=== PATIENT | female | born 1990 ===

== ENCOUNTER 2017-06-29 12:18 | Emergency (ER) | payer MEDICAID ==
[2017-06-29 12:38] VITALS: RESP 18; BMI 32.8
[2017-06-29] MEDS ORDERED: Sodium Chloride 0.9% 1,000 ML IV STA (13:00)
[2017-06-29 13:15] LABS: BASO # 0.02 K/mm3 (0.0-2.0); BASO % 0.2 % (0.0-3.0); EOS # 0.4 (0.0-0.7); EOS % 4.7 % (1.5-5.0); GRAN # 4.28 (1.4-6.5); GRAN % 52.1 % (50.0-68.0); LYMPH # 3.1 (1.2-3.4); MEAN CELL VOLUME 92.2 fl (80.0-105.0); MEAN CORPUSCULAR HEMOGLOBIN 32.1 pg (25.0-35.0); MEAN CORPUSCULAR HGB CONC 34.8 g/dl (31.0-37.0); MEAN PLATELET VOLUME 10.5 fl (7.0-11.0); MONO # 0.4 (0.1-0.6); RED CELL DISTRIBUTION WIDTH 12.6 % (11.5-14.5); WHITE BLOOD COUNT 8.2 10^3/ul (4.5-11.0)
[2017-06-29 13:16] LABS: URINE BILIRUBIN NEGATIVE (NEGATIVE); URINE BLOOD SMALL (NEGATIVE); URINE GLUCOSE (UA) NEGATIVE (NEGATIVE); URINE KETONE NEGATIVE (NEGATIVE); URINE LEUKOCYTE ESTERASE NEGATIVE Leu/uL (NEGATIVE); URINE PROTEIN NEGATIVE mg/dL (<30 mg/dL); URINE UROBILINOGEN 0.2 E.U./dL (<1 E.U./dL)
[2017-06-29 13:20] LABS: URINE APPEARANCE CLEAR (CLEAR); URINE COLOR YELLOW (YELLOW)
[2017-06-29 13:32] LABS: INR 1.01 (0.93-1.08); PARTIAL THROMBOPLASTIN TIME 30.3 Seconds (25.1-36.5)
[2017-06-29 13:36] LABS: URINE BACTERIA SMALL (NEG); URINE EPITHELIAL CELLS 0 - 2 /hpf (0-5); URINE RBC 0 - 2 /hpf (0-2); URINE WBC 0 - 2 /hpf (0-6)
[2017-06-29 13:37] LABS: ALB/GLOB RATIO 1.4 (1.1-1.8); ALKALINE PHOSPHATASE 86 U/L (38-126); ALT/SGPT 34 U/L (7-56); AST/SGOT 27 U/L (14-36); BLOOD UREA NITROGEN 15 mg/dL (7-21); CALCIUM 9.7 mg/dL (8.4-10.5); CARBON DIOXIDE 26 mmol/L (21-33); CHLORIDE 103 mmol/L (98-107); GFR AFRICAN-AMERICAN > 60; GLUCOSE,RANDOM 108 mg/dL (70-110); LIPASE 58 U/L (23-300); SODIUM 141 mmol/L (132-148)
--- NOTE | 2017-06-29 14:15 | ED PDOC ---
Arrival/HPI - General Chief Complaint: Abdominal Pain Time Seen by Provider: 06/29/17 12:59 Historian: Patient - History of Present Illness Narrative History of Present Illness (Text): 06/29/17 14:12 26yo female with no PMHx who present with complaint of diffuse crampy abdominal pain, nausea, nonbloody vomiting since last night. Notes only one episode of vomiting since last night.states she recently came from [place] a week ago. She denies fever, urinary symptoms, diarrhea, constipation, chest pain, sick contact, travel, any other complaint. Past Medical History - Provider Review Nursing Documentation Reviewed: Yes - Psychiatric Hx Substance Use: No - Surgical History Hx Section: Yes - Anesthesia Hx Anesthesia: Yes Hx Anesthesia Reactions: No Hx Malignant Hyperthermia: No Family/Social History - Physician Review Nursing Documentation Reviewed: Yes Family/Social History: Unknown Family HX Smoking Status: Never Smoked Hx Alcohol Use: No Hx Substance Use: No Allergies/Home Meds Allergies/Adverse Reactions: Allergies No Known Allergies Allergy (Verified 06/29/17 12:32) Review of Systems - Physician Review All systems were reviewed & negative as marked: Yes - Review of Systems Constitutional: Normal Eyes: Normal ENT: Normal Respiratory: Normal Cardiovascular: Normal Gastrointestinal: Abdominal Pain, Nausea, Vomiting. absent: Constipation, Diarrhea, Hematemesis Genitourinary Female: Normal Musculoskeletal: Normal Skin: Normal Neurological: Normal Endocrine: Normal Hemo/Lymphatic: Normal Psychiatric: Normal Physical Exam Vital Signs Reviewed: Yes Vital Signs Temp Pulse Resp BP Pulse Ox 06/29/17 12:32 98.5 F 83 18 111/70 99 Temperature: Afebrile Blood Pressure: Normal Pulse: Regular Respiratory Rate: Normal Appearance: Positive for: Well-Appearing, Non-Toxic, Comfortable Pain Distress: None Mental Status: Positive for: Alert and Oriented X 3 - Systems Exam Head: Present: Atraumatic, Normocephalic Pupils: Present: PERRL Extroacular Muscles: Present: EOMI Conjunctiva: Present: Normal Mouth: Present: Moist Mucous Membranes Neck: Present: Normal Range of Motion Respiratory/Chest: Present: Clear to Auscultation, Good Air Exchange. No: Respiratory Distress, Accessory Muscle Use Cardiovascular: Present: Regular Rate and Rhythm, Normal S1, S2. No: Murmurs Abdomen: Present: Tenderness (Mild tenderness with deep palpation), Normal Bowel Sounds, Other (soft). No: Distention, Peritoneal Signs, Rebound, Guarding , McBurney's Point Tender, Rovsing's Sign Present Back: Present: Normal Inspection Upper Extremity: Present: Normal Inspection. No: Cyanosis, Edema Lower Extremity: Present: Normal Inspection. No: Edema Neurological: Present: GCS=15, CN II-XII Intact, Speech Normal Skin: Present: Warm, Dry, Normal Color. No: Rashes Psychiatric: Present: Alert, Oriented x 3, Normal Insight, Normal Concentration Medical Decision Making ED Course and Treatment: 06/29/17 14:17 Pt in ED for stated history. she was hemodynamically stable. Lab was unremarkable. she was able to tolerate PO challenge. Pt symptoms likely viral enteritis. Will DC home with zofran and pepcid. Advised to follow BLAND diet. Referred to the clinic. TRT ED for any new or worsening symptoms. - Lab Interpretations Lab Results: 06/29/17 13:00 06/29/17 13:00 Lab Results 06/29/17 13:00: Sodium 141, Potassium 4.0, Chloride 103, Carbon Dioxide 26, Anion Gap 16, BUN 15, Creatinine 0.8, Est GFR ( Amer) > 60, Est GFR (Non- Af Amer) > 60, Random Glucose 108, Calcium 9.7, Total Bilirubin 1.0, AST 27, ALT 34, Alkaline Phosphatase 86, Total Protein 8.0, Albumin 4.7, Globulin 3.3, Albumin/Globulin Ratio 1.4, Lipase 58 06/29/17 13:00: Urine Color Yellow, Urine Appearance Clear, Urine pH 6.0, Ur Specific [place] 1.025, Urine Protein Negative, Urine Glucose (UA) Negative, Urine Ketones Negative, Urine Blood Small H, Urine Nitrate Negative, Urine Bilirubin Negative, Urine Urobilinogen 0.2, Ur Leukocyte Esterase Negative, Urine RBC 0 - 2, Urine WBC 0 - 2, Ur Epithelial Cells 0 - 2, Urine Bacteria Small 06/29/17 13:00: PT 11.1, INR 1.01, APTT 30.3 06/29/17 13:00: WBC 8.2, RBC 4.99, Hgb 16.0, Hct 46.0, MCV 92.2, MCH 32.1, MCHC 34.8, RDW 12.6, Plt Count 322, MPV 10.5, Gran % 52.1, Lymph % (Auto) 38.0 H, [place] % (Auto) 5.0, Eos % (Auto) 4.7, Baso % (Auto) 0.2, Gran # 4.28, Lymph # 3.1 , [place] # 0.4, Eos # 0.4, Baso # 0.02 - Medication Orders Current Medication Orders: Discontinued Medications Famotidine (Pepcid) 20 mg IVP STAT STA Stop: 06/29/17 13:01 Last Admin: 06/29/17 13:07 Dose: 20 mg IVP Administration Document 06/29/17 13:07 EWO (Rec: 06/29/17 13:07 [facility] [id number]) Charges for Administration # of IVP Administrations 1 Sodium Chloride (Sodium Chloride 0.9%) 1,000 mls @ 1,000 mls/hr IV .Q1H STA Stop: 06/29/17 13:59 Last Admin: 06/29/17 13:07 Dose: 1,000 mls/hr eMAR Start Stop Document 06/29/17 13:07 EWO (Rec: 06/29/17 13:08 [facility] [id number]) Intravenous Solution Start Date 06/29/17 Start Time 13:08 End Date 06/29/17 End time 14:08 Total Infusion Time 60 Ketorolac Tromethamine (Toradol) 30 mg IVP STAT STA Stop: 06/29/17 13:01 Last Admin: 06/29/17 13:08 Dose: 30 mg MAR Pain Assessment Document 06/29/17 13:08 EW (Rec: 06/29/17 13:08 [facility] [id number]) Pain Reassessment Is this a pain reassessment? No Sleep Is patient sleeping during reassessment? No Presence of Pain Presence of Pain Yes Pain Scale Used Pain Scale Used Numeric Location Pain Location Body Site Abdomen Description Description Intermittent Intensity of Pain at present 5 IVP Administration Document 06/29/17 13:08 EWO (Rec: 06/29/17 13:08 [facility] [id number]) Charges for Administration # of IVP Administrations 1 Ondansetron HCl (Zofran Inj) 4 mg IVP STAT STA Stop: 06/29/17 13:01 Last Admin: 06/29/17 13:08 Dose: 4 mg IVP Administration Document 06/29/17 13:08 SHAYYSharon (Rec: 06/29/17 13:08 ANGELICA [id number]) Charges for Administration # of IVP Administrations 1 Disposition/Present on Arrival - Present on Arrival Any Indicators Present on Arrival: No History of DVT/PE: No History of Uncontrolled Diabetes: No Urinary Catheter: No History of Decub. Ulcer: No History Surgical Site Infection Following: None - Disposition Have Diagnosis and Disposition been Completed?: Yes Diagnosis: Abdominal pain, Vomiting Disposition: HOME/ ROUTINE Disposition Time: 14:15 Patient Plan: Discharge Condition: STABLE Discharge Instructions (ExitCare): Acute Abdominal Pain (ED), Acute Nausea and Vomiting (ED) Additional Instructions: Follow up with your PMD/Clinic Return to ED for any new or worsening symptoms Prescriptions: Famotidine [Pepcid] 20 mg PO BID #20 tab Ondansetron ODT [Zofran ODT] 4 mg PO Q6 #7 odt Referrals: Roverto Stevenson, [Primary Care Provider] - Follow up with primary [facility] [place] [Outside] - Follow up with primary
[2017-06-29 14:38] VITALS: BP 124/78; PULSE 72; TEMP 98; O2SAT 98
== END 2017-06-29 14:38 | disposition home or self-care (01) ==
LOC: ED 12:18
DX: R10.9 Unspecified abdominal pain (principal); R11.10 Vomiting, unspecified
CPT/HCPCS: 80053; 81001; 83690; 85025; 85610; 85730; 96361; 96374; 96375; 99284; J1885; J2405; J7040

== ENCOUNTER 2017-10-23 04:41 | Emergency (ER) | payer MEDICAID, OTHER ==
[2017-10-23 04:42] VITALS: BMI 32.8
[2017-10-23 04:49] VITALS: TEMP 97.5
--- NOTE | 2017-10-23 05:01 | ED PDOC ---
Arrival/HPI - General Chief Complaint: Abdominal Pain Time Seen by Provider: 10/23/17 04:57 Historian: Patient - History of Present Illness Narrative History of Present Illness (Text): 10/23/17 05:00 Fatuma Dasilva is a 27 year old female who presents to the Emergency department complaining of RLQ abdominal pain since yesterday afternoon. Patient denies any fever, chills, chest pain, shortness of breath, nausea, vomiting, diarrhea, urinary symptoms, back pain, neck pain, headache, dizziness, or any other complaints. Time/Duration: Other (yesterday) Symptom Onset: Gradual Symptom Course: Unchanged Activities at Onset: Light Context: Home Past Medical History - Provider Review Nursing Documentation Reviewed: Yes - Psychiatric Hx Substance Use: No - Surgical History Hx Section: Yes (x2) - Anesthesia Hx Anesthesia: Yes Hx Anesthesia Reactions: No Hx Malignant Hyperthermia: No Family/Social History - Physician Review Nursing Documentation Reviewed: Yes Family/Social History: Unknown Family HX Smoking Status: Never Smoked Hx Alcohol Use: No Hx Substance Use: No Allergies/Home Meds Allergies/Adverse Reactions: Allergies No Known Allergies Allergy (Verified 10/23/17 04:52) Review of Systems - Physician Review All systems were reviewed & negative as marked: Yes - Review of Systems Constitutional: Normal. absent: Fevers Eyes: Normal ENT: Normal Respiratory: Normal. absent: SOB, Cough Cardiovascular: Normal. absent: Chest Pain Gastrointestinal: Abdominal Pain. absent: Diarrhea, Nausea, Vomiting Genitourinary Female: Normal. absent: Dysuria, Frequency, Hematuria, Urine Output Changes Musculoskeletal: Normal. absent: Back Pain, Neck Pain Skin: Normal. absent: Rash Neurological: Normal. absent: Headache, Dizziness Endocrine: Normal Hemo/Lymphatic: Normal Psychiatric: Normal Physical Exam Vital Signs Reviewed: Yes Vital Signs Temp Pulse Resp BP Pulse Ox 10/23/17 04:47 97.5 F L 81 20 138/71 99 Temperature: Afebrile Blood Pressure: Normal Pulse: Regular Respiratory Rate: Normal Appearance: Positive for: Well-Appearing, Non-Toxic, Comfortable Pain Distress: None Mental Status: Positive for: Alert and Oriented X 3 - Systems Exam Head: Present: Atraumatic, Normocephalic Pupils: Present: PERRL Extroacular Muscles: Present: EOMI Conjunctiva: Present: Normal Mouth: Present: Moist Mucous Membranes Neck: Present: Normal Range of Motion Respiratory/Chest: Present: Clear to Auscultation, Good Air Exchange. No: Respiratory Distress, Accessory Muscle Use Cardiovascular: Present: Regular Rate and Rhythm, Normal S1, S2. No: Murmurs Abdomen: Present: Tenderness (RLQ tenderness). No: Distention, Peritoneal Signs Genitourinary/Pelvic Exam: Present: Normal External Genitalia, Adenexal Tenderness (rt), Cervical os Closed. No: Vaginal Discharge, Vaginal Bleeding, Cervical Motion Tendernes, Odor Back: Present: Normal Inspection Upper Extremity: Present: Normal Inspection. No: Cyanosis, Edema Lower Extremity: Present: Normal Inspection. No: Edema Neurological: Present: GCS=15, CN II-XII Intact, Speech Normal Skin: Present: Warm, Dry, Normal Color. No: Rashes Psychiatric: Present: Alert, Oriented x 3, Normal Insight, Normal Concentration Medical Decision Making ED Course and Treatment: 10/23/17 05:00 Impression: 27 year old female complaining of RLQ abdominal pain since yesterday afternoon. Plan: -- CT Abdomen and Pelvis -- Labs -- UA -- IV fluids -- Toradol -- Reassess and disposition Prior Visits: Notes and results from previous visits were reviewed. On 06/29/17, pt was seen in the Emergency department for diffuse abdominal cramping, nausea, and vomiting. Pt was d/c home. Progress Notes: 10/23/17 06:30 CT Abdomen and Pelvis shows: Lung bases: Unremarkable. No mass. No consolidation. ABDOMEN: Liver: Unremarkable. Gallbladder and bile ducts: Unremarkable. No calcified stones. No ductal dilation. Pancreas: Unremarkable. No ductal dilation. Spleen: Unremarkable. No splenomegaly. Adrenals: Unremarkable. No mass. Kidneys and ureters: Unremarkable. No obstructing stones. No hydronephrosis. Stomach and bowel: Unremarkable. No obstruction. No mucosal thickening. Appendix: No findings to suggest acute appendicitis. Normal appendix. PELVIS: Bladder: Unremarkable. No stones. Reproductive: There is a low density cystic structure in the right pelvis demonstrating a 3.5 cm central oval hyperdensity. Findings could be secondary to hemorrhagic ovarian cyst measuring 4.5 x 5.1 x 4.3 cm. ABDOMEN and PELVIS: Intraperitoneal space: Unremarkable. No free air. No significant fluid collection. Bones/joints: No acute fracture. No dislocation. Soft tissues: Unremarkable. Vasculature: Unremarkable. No abdominal aortic aneurysm. Lymph nodes: Unremarkable. No enlarged lymph nodes. Tubes, lines and devices: An intrauterine device is present. IMPRESSION: Complex right pelvic cystic mass, possible hemorrhagic ovarian cyst. Followup pelvic ultrasound could be performed for further evaluation. No evidence of acute appendicitis. No nephrolithiasis or obstructive uropathy. Transvaginal US ordered. 10/23/17 07:[address] Bravo, pending US, re-evaluation, and disposition. - Lab Interpretations Lab Results: 10/23/17 05:00 10/23/17 05:00 Lab Results 10/23/17 05:00: Sodium 143, Potassium 4.1, Chloride 103, Carbon Dioxide 30, Anion Gap 13, BUN 9, Creatinine 0.7, Est GFR ( Amer) > 60, Est GFR (Non- Af Amer) > 60, Random Glucose 99, Calcium 9.7, Total Bilirubin 0.7, AST 27, ALT 34, Alkaline Phosphatase 84, Total Protein 7.6, Albumin 4.4, Globulin 3.2, Albumin/Globulin Ratio 1.4 10/23/17 05:00: WBC 10.4 D, RBC 4.68, Hgb 15.0, Hct 43.5, MCV 92.9, MCH 32.1, MCHC 34.5, RDW 12.4, Plt Count 312, MPV 10.8, Gran % 51.3, Lymph % (Auto) 38.2 H , [place] % (Auto) 7.2 H, Eos % (Auto) 3.0, Baso % (Auto) 0.3, Gran # 5.36, Lymph # (Auto) 4.0 H, [place] # (Auto) 0.8 H, Eos # (Auto) 0.3, Baso # (Auto) 0.03 I have reviewed the lab results: Yes - RAD Interpretation Radiology Orders: 10/23/17 05:24 ABD & PELVIS W/O PO OR IV CONT [CT] Stat 10/23/17 06:28 TRANSVAGINAL [US] Stat Equipment Tech: Radiologist - Medication Orders Current Medication Orders: Sodium Chloride (Sodium Chloride 0.9%) 1,000 mls @ 80 mls/hr IV .[id number] BRIDGER Last Admin: 10/23/17 05:16 Dose: 80 mls/hr eMAR Start Stop Document 10/23/17 05:16 SS (Rec: 10/23/17 05:16 SS [id number]) Intravenous Solution Start Date 10/23/17 Start Time 05:16 Discontinued Medications Ketorolac Tromethamine (Toradol) 10 mg IVP ONCE ONE Stop: 10/23/17 05:11 Ketorolac Tromethamine (Toradol) 15 mg IVP ONCE ONE Stop: 10/23/17 05:11 Last Admin: 10/23/17 05:22 Dose: 15 mg MAR Pain Assessment Document 10/23/17 05:22 SS (Rec: 10/23/17 05:22 SS [id number]) Pain Reassessment Is this a pain reassessment? No Sleep Is patient sleeping during reassessment? No Presence of Pain Presence of Pain Yes Pain Scale Used Pain Scale Used Numeric Location Left, Right or Bilateral Right Pain Location Body Site Jaw Abdomen Description Description Constant Intensity of Pain at present 9 IVP Administration Document 10/23/17 05:22 SS (Rec: 10/23/17 05:22 SS [id number]) Charges for Administration # of IVP Administrations 1 Morphine Sulfate (Morphine) 2 mg IVP STAT STA Stop: 10/23/17 05:50 Last Admin: 10/23/17 05:54 Dose: - Scribe Statement The provider has reviewed the documentation as recorded by the Dorothy Mott Provider Scribe Attestation: All medical record entries made by the Scribe were at my direction and personally dictated by me. I have reviewed the chart and agree that the record accurately reflects my personal performance of the history, physical exam, medical decision making, and the department course for this patient. I have also personally directed, reviewed, and agree with the discharge instructions and disposition. Disposition/Present on Arrival - Present on Arrival History of DVT/PE: No History of Uncontrolled Diabetes: No Urinary Catheter: No History of Decub. Ulcer: No History Surgical Site Infection Following: None - Disposition Forms: [employer] (Citizen Of [place])
[2017-10-23 05:10] LABS: BASO # 0.03 K/mm3 (0.0-2.0); BASO % 0.3 % (0.0-3.0); EOS # 0.3 (0.0-0.7); GRAN # 5.36 (1.4-6.5); GRAN % 51.3 % (50.0-68.0); LYMPH % 38.2 % (22.0-35.0); MEAN CELL VOLUME 92.9 fl (80.0-105.0); MEAN CORPUSCULAR HEMOGLOBIN 32.1 pg (25.0-35.0); MEAN CORPUSCULAR HGB CONC 34.5 g/dl (31.0-37.0); MEAN PLATELET VOLUME 10.8 fl (7.0-11.0); MONO # 0.8 (0.1-0.6); MONO % 7.2 % (1.0-6.0); RBC 4.68 10^6/uL (3.5-6.1); RED CELL DISTRIBUTION WIDTH 12.4 % (11.5-14.5); WHITE BLOOD COUNT 10.4 10^3/ul (4.5-11.0)
[2017-10-23] MEDS ORDERED: Sodium Chloride 0.9% 1,000 ML IV SCH (05:15)
[2017-10-23 05:27] LABS: ALB/GLOB RATIO 1.4 (1.1-1.8); ALBUMIN 4.4 g/dL (3.0-4.8); ALT/SGPT 34 U/L (7-56); AST/SGOT 27 U/L (14-36); BLOOD UREA NITROGEN 9 mg/dL (7-21); CALCIUM 9.7 mg/dL (8.4-10.5); GFR AFRICAN-AMERICAN > 60; GFR NON-AFRICAN AMERICAN > 60
[2017-10-23] MEDS ORDERED: Morphine 4 mg/ml ISec IVP STA (05:49)
[2017-10-23] MEDS: Morphine 4 mg/ml ISec ONE ×2 (05:55→06:01)
--- NOTE | 2017-10-23 06:25 | CT ---
EXAM: CT Abdomen and Pelvis Without Intravenous Contrast CLINICAL HISTORY: 27 years old, female; Pain; Abdominal pain; Flank; Right lower quadrant (rlq); Additional info: Rlq pain TECHNIQUE: Axial computed tomography images of the abdomen and pelvis without intravenous contrast. All CT scans at this facility use one or more dose reduction techniques, viz.: automated exposure control; ma/kV adjustment per patient size (including targeted exams where dose is matched to indication; i.e. head); or iterative reconstruction technique. Coronal and sagittal reformatted images were created and reviewed. COMPARISON: No relevant prior studies available. FINDINGS: Lung bases: Unremarkable. No mass. No consolidation. ABDOMEN: Liver: Unremarkable. Gallbladder and bile ducts: Unremarkable. No calcified stones. No ductal dilation. Pancreas: Unremarkable. No ductal dilation. Spleen: Unremarkable. No splenomegaly. Adrenals: Unremarkable. No mass. Kidneys and ureters: Unremarkable. No obstructing stones. No hydronephrosis. Stomach and bowel: Unremarkable. No obstruction. No mucosal thickening. Appendix: No findings to suggest acute appendicitis. Normal appendix. PELVIS: Bladder: Unremarkable. No stones. Reproductive: There is a low density cystic structure in the right pelvis demonstrating a 3.5 cm central oval hyperdensity. Findings could be secondary to hemorrhagic ovarian cyst measuring 4.5 x 5.1 x 4.3 cm. ABDOMEN and PELVIS: Intraperitoneal space: Unremarkable. No free air. No significant fluid collection. Bones/joints: No acute fracture. No dislocation. Soft tissues: Unremarkable. Vasculature: Unremarkable. No abdominal aortic aneurysm. Lymph nodes: Unremarkable. No enlarged lymph nodes. Tubes, lines and devices: An intrauterine device is present. IMPRESSION: Complex right pelvic cystic mass, possible hemorrhagic ovarian cyst. Followup pelvic ultrasound could be performed for further evaluation. No evidence of acute appendicitis. No nephrolithiasis or obstructive uropathy.
[2017-10-23 07:01] LABS: URINE BILIRUBIN NEGATIVE (NEGATIVE); URINE BLOOD NEGATIVE (NEGATIVE); URINE GLUCOSE (UA) NEGATIVE (NEGATIVE); URINE LEUKOCYTE ESTERASE NEGATIVE Leu/uL (NEGATIVE); URINE PROTEIN NEGATIVE mg/dL (<30 mg/dL); URINE UROBILINOGEN 0.2 E.U./dL (<1 E.U./dL)
[2017-10-23 07:03] LABS: URINE APPEARANCE CLEAR (CLEAR); URINE COLOR YELLOW (YELLOW)
--- NOTE | 2017-10-23 07:09 | ED PDOC ---
Physical Exam Vital Signs Reviewed: Yes Vital Signs Temp Pulse Resp BP Pulse Ox 10/23/17 07:27 61 18 117/59 L 97 10/23/17 04:47 97.5 F L 81 20 138/71 99 Temperature: Afebrile Blood Pressure: Normal Pulse: Regular Respiratory Rate: Normal Medical Decision Making ED Course and Treatment: 10/23/17 07:08 Case endorsed to me by Dr. Ceron at 07:00, pending ultrasound results. Patient presented with right lower abdominal pain. She had a CT which showed a pelvic mass and was recommended a transvaginal ultrasound. 10/23/17 07:49 Spoke with ad radiologist Dr. Castro, who reports ultrasound showed a ruptured hemorrhagic ovarian cyst. Patient is [place] speaking, scribe assisted with translation. I have discussed the results and plan with the patient, who expresses understanding. Patient in agreement with plan to be discharged home. Patient is stable for discharge. Patient was instructed to follow up with obgyn or return if symptoms worsen or new concerning symptoms arise. - Lab Interpretations Lab Results: 10/23/17 05:00 10/23/17 05:00 Lab Results 10/23/17 05:02: Urine Color Yellow, Urine Appearance Clear, Urine pH 6.0, Ur Specific [place] 1.025, Urine Protein Negative, Urine Glucose (UA) Negative, Urine Ketones Negative, Urine Blood Negative, Urine Nitrate Negative, Urine Bilirubin Negative, Urine Urobilinogen 0.2, Ur Leukocyte Esterase Negative 10/23/17 05:00: Sodium 143, Potassium 4.1, Chloride 103, Carbon Dioxide 30, Anion Gap 13, BUN 9, Creatinine 0.7, Est GFR ( Amer) > 60, Est GFR (Non- Af Amer) > 60, Random Glucose 99, Calcium 9.7, Total Bilirubin 0.7, AST 27, ALT 34, Alkaline Phosphatase 84, Total Protein 7.6, Albumin 4.4, Globulin 3.2, Albumin/Globulin Ratio 1.4 10/23/17 05:00: WBC 10.4 D, RBC 4.68, Hgb 15.0, Hct 43.5, MCV 92.9, MCH 32.1, MCHC 34.5, RDW 12.4, Plt Count 312, MPV 10.8, Gran % 51.3, Lymph % (Auto) 38.2 H , [place] % (Auto) 7.2 H, Eos % (Auto) 3.0, Baso % (Auto) 0.3, Gran # 5.36, Lymph # (Auto) 4.0 H, [place] # (Auto) 0.8 H, Eos # (Auto) 0.3, Baso # (Auto) 0.03 - RAD Interpretation Radiology Orders: 10/23/17 05:24 ABD & PELVIS W/O PO OR IV CONT [CT] Stat 10/23/17 06:28 TRANSVAGINAL [US] Stat - Medication Orders Current Medication Orders: Sodium Chloride (Sodium Chloride 0.9%) 1,000 mls @ 80 mls/hr IV .[id number] BRIDGER Last Admin: 10/23/17 05:16 Dose: 80 mls/hr eMAR Start Stop Document 10/23/17 05:16 SS (Rec: 10/23/17 05:16 SS [id number]) Intravenous Solution Start Date 10/23/17 Start Time 05:16 Discontinued Medications Ketorolac Tromethamine (Toradol) 10 mg IVP ONCE ONE Stop: 10/23/17 05:11 Ketorolac Tromethamine (Toradol) 15 mg IVP ONCE ONE Stop: 10/23/17 05:11 Last Admin: 10/23/17 05:22 Dose: 15 mg MAR Pain Assessment Document 10/23/17 05:22 SS (Rec: 10/23/17 05:22 SS [id number]) Pain Reassessment Is this a pain reassessment? No Sleep Is patient sleeping during reassessment? No Presence of Pain Presence of Pain Yes Pain Scale Used Pain Scale Used Numeric Location Left, Right or Bilateral Right Pain Location Body Site Jaw Abdomen Description Description Constant Intensity of Pain at present 9 IVP Administration Document 10/23/17 05:22 SS (Rec: 10/23/17 05:22 SS [id number]) Charges for Administration # of IVP Administrations 1 Morphine Sulfate (Morphine) 2 mg IVP STAT STA Stop: 10/23/17 05:50 Last Admin: 10/23/17 05:54 Dose: - Scribe Statement The provider has reviewed the documentation as recorded by the Scribe [place] Provider Scribe Attestation: All medical record entries made by the Scribe were at my direction and personally dictated by me. I have reviewed the chart and agree that the record accurately reflects my personal performance of the history, physical exam, medical decision making, and the department course for this patient. I have also personally directed, reviewed, and agree with the discharge instructions and disposition. Disposition/Present on Arrival - Present on Arrival Any Indicators Present on Arrival: No History of DVT/PE: No History of Uncontrolled Diabetes: No Urinary Catheter: No History of Decub. Ulcer: No History Surgical Site Infection Following: None - Disposition Have Diagnosis and Disposition been Completed?: Yes Diagnosis: Hemorrhagic cyst of right ovary Disposition: HOME/ ROUTINE Disposition Time: 07:49 Patient Plan: Discharge Condition: GOOD Discharge Instructions (ExitCare): Ovarian Cyst (DC) Prescriptions: Ibuprofen [Motrin Tab] 800 mg PO TID #30 tab Referrals: PCP,NO [Primary Care Provider] - Follow up with primary Forms: [employer] (Greek), WORK NOTE
[2017-10-23 07:28] VITALS: BP 117/59; PULSE 61; RESP 18; O2SAT 97
--- NOTE | 2017-10-23 07:49 | US ---
EXAM: US Pelvis, Transvaginal CLINICAL HISTORY: 27 years old, female; Pain; Pelvic pain; Additional info: Abd pain TECHNIQUE: Real-time transabdominal and transvaginal pelvic ultrasound (complete) with image documentation. Transvaginal imaging was used for better evaluation of the endometrium and adnexa. COMPARISON: CT - ABD PELVIS W/O PO OR IV CONT 2017-10-23 05:34 FINDINGS: Transabdominal ultrasound: The uterus measures 10.2 x 4.9 x 7.4 cm and is normal in contour. An intrauterine device is present. The ovaries are not well visualized. The visualized bladder is grossly unremarkable. IMPRESSION: Transvaginal ultrasound was performed to better evaluate the ovaries. Transvaginal ultrasound: Uterus/cervix: Unremarkable. The endometrial stripe measures 1.1 cm. No myometrial mass. An intrauterine device is present. Right ovary: The right ovary is enlarged measuring 5.9 x 5.3 x 5.0 cm. There is a complex cystic mass measuring 8.8 x 5.9 x 6.0 cm in the right adnexa. There is a central hyperechoic masslike structure suggesting hematoma. Findings are most likely secondary to hemorrhagic ovarian cyst. Normal blood flow. Left ovary: Unremarkable measuring 4 x 3.0 x 4.2 cm. No mass. Normal blood flow. Free fluid: Large pelvic free fluid with echogenic debris suspicious for hemorrhage. Bladder: Empty bladder which cannot be evaluated with this probe. IMPRESSION: Complex cystic right ovarian mass. Large complex pelvic free fluid suspicious for hemorrhage. Findings are most likely secondary to ruptured hemorrhagic ovarian cyst. THIS REPORT CONTAINS FINDINGS THAT MAY BE CRITICAL TO PATIENT CARE. The findings were verbally communicaated via telephone conference with Dr Bravo at 7:49 AM EDT on 10/23/2017. The findings were acknowledged and understood.
== END 2017-10-23 08:22 | disposition home or self-care (01) ==
LOC: ED 04:41
DX: N83.201 Unspecified ovarian cyst, right side (principal)
CPT/HCPCS: 74176; 76830; 80053; 81003; 85025; 96374; 99284; J1885; J2270; J7040

== ENCOUNTER 2018-08-03 13:46 | Emergency (ER) | payer MEDICARE, OTHER ==
[2018-08-03 13:47] VITALS: BMI 32.8
[2018-08-03 14:16] VITALS: RESP 18
[2018-08-03] MEDS ORDERED: Sodium Chloride 0.9% 1,000 ML IV STA (14:49)
--- NOTE | 2018-08-03 15:02 | ED PDOC ---
Arrival/HPI - General Chief Complaint: Flu-like Symptoms Time Seen by Provider: 08/03/18 14:04 Historian: Patient, Dress Marker - History of Present Illness Narrative History of Present Illness (Text): 08/03/18 14:59 27 year old female, whose past medical history includes history of right ovary hemorrhagic cyst, presents complaining of right-sided flank pain associated with cough, and body aches for the past 2 days. Patient reports she had a fever initially which resolved. Patient reports family history of kidney stones. Patient denies any fever, chills, chest pain, shortness of breath, nausea, vomiting, diarrhea, urinary symptoms, back pain, neck pain, headache, dizziness, or any other complaints. PMD: Dr. Landry Sadler Time/Duration: Other (2 days) Symptom Onset: Gradual Symptom Course: Unchanged Activities at Onset: Light Context: Home Past Medical History - Provider Review Nursing Documentation Reviewed: Yes - Psychiatric Hx Substance Use: No - Surgical History Hx Section: Yes (x2) - Anesthesia Hx Anesthesia: Yes Hx Anesthesia Reactions: No Hx Malignant Hyperthermia: No Family/Social History - Physician Review Nursing Documentation Reviewed: Yes Family/Social History: No Known Family HX Smoking Status: Never Smoked Hx Alcohol Use: No Hx Substance Use: No Allergies/Home Meds Allergies/Adverse Reactions: Allergies No Known Allergies Allergy (Verified 10/23/17 04:52) Review of Systems - Physician Review All systems were reviewed & negative as marked: Yes - Review of Systems Constitutional: Fevers. absent: Other (Chills) Respiratory: Cough. absent: SOB Cardiovascular: absent: Chest Pain Gastrointestinal: absent: Diarrhea, Nausea, Vomiting Genitourinary Female: absent: Dysuria, Frequency, Hematuria Musculoskeletal: Back Pain (right flank pain ), Myalgias. absent: Neck Pain Neurological: absent: Headache, Dizziness Physical Exam - Physical Exam Narrative Physical Exam (Text): Gen: VS reviewed, alert, well developed, well nourished, nontoxic, mild distress. ENT: normal pharynx. Eye: EOMI, PERRL. Neck: no JVD, supple, no adenopathy. CV: regular rate, regular rhythm, no rubs, no murmur, no gallops, S1, S2, pulses equal and strong. Pulm: no distress, clear to auscultation, no wheeze, no rhonchi, breath sounds equal, no rales. Abd: soft, nontender, no guarding, no rebound, no rigidity, normal bowel sounds. Back: Right CVA tenderness. Ext: no edema. Skin: Hot to touch. good color, no rash, no cyanosis. Psych: responds appropriately to questions, normal affect. Neuro: oriented x 3, CN2-12 intact grossly, motor intact, sensation intact. Vital Signs Reviewed: Yes Vital Signs Temp Pulse Resp BP Pulse Ox 08/03/18 13:47 98.8 F 105 H 18 120/75 96 Temperature: Afebrile Blood Pressure: Normal Pulse: Tachycardic Respiratory Rate: Normal Medical Decision Making ED Course and Treatment: 08/03/18 14:59 Impression: 27 year old female presents coughing of right-sided flank associated with cough, myalgia and fever that began 2 days ago. Plan: -- VBG -- CT abdomen and pelvis w/o contrast -- Labs -- IV Fluids, Toradol -- Urine Culture -- POC Urine -- Rapid Flu -- Urinalysis -- Reassess and disposition Prior Visits: Notes and results from previous visits were reviewed. Progress Notes: 08/03/18 18:53 patient was seen for right flank pain in light of uti, clinical pyelonephritis, Ct was done to rule out obstructive uropathy. patient felt better at time of discharge. patient is aware of pending urine culture and the possibility of necessity of changing antibiotic. patient agreeable to return for any new or wo rsening symptoms. all discussion with the patient via portuguese interpeter with patient's permission. - Lab Interpretations I have reviewed the lab results: Yes - RAD Interpretation Narrative RAD Interpretations (Text): EXAM: CT Abdomen without IV contrast Electronically signed on Aug 03, 2018 6:22:37 PM EST by: Joe Tomas M.D. IMPRESSION: No acute intra-abdominal abnormality. Intrauterine device in place within the uterus. If symptoms persist and clinically warranted correlation with dedicated contrast-enhanced study is recommended. Radiology Orders: 08/03/18 14:49 ABDOMEN & PELVIS [ABD & PELVIS W/O PO OR IV CONT] [CT] Stat Changeover Operator: Radiologist - Medication Orders Current Medication Orders: Sodium Chloride (Sodium Chloride 0.9%) 1,000 mls @ 999 mls/hr IV .Q1H1M STA Stop: 08/03/18 15:49 Discontinued Medications Ketorolac Tromethamine (Toradol) 30 mg IVP STAT STA Stop: 08/03/18 14:50 - Scribe Statement The provider has reviewed the documentation as recorded by the Dorothy Carmen Provider Scribe Attestation: All medical record entries made by the Scribe were at my direction and personally dictated by me. I have reviewed the chart and agree that the record accurately reflects my personal performance of the history, physical exam, medical decision making, and the department course for this patient. I have also personally directed, reviewed, and agree with the discharge instructions and disposition. Disposition/Present on Arrival - Present on Arrival Any Indicators Present on Arrival: No History of DVT/PE: No History of Uncontrolled Diabetes: No Urinary Catheter: No History of Decub. Ulcer: No History Surgical Site Infection Following: None - Disposition Have Diagnosis and Disposition been Completed?: Yes Diagnosis: Pyelonephritis Disposition: HOME/ ROUTINE Disposition Time: 18:52 Patient Plan: Discharge Patient Problems: Current Active Problems Problem Status Onset Pneumonia Acute Sepsis Acute Condition: STABLE Discharge Instructions (ExitCare): Kidney Infection (DC) Print Language: LUXEMBOURGISH Additional Instructions: return for any new or worsening symptoms. Prescriptions: Ciprofloxacin [Cipro] 500 mg PO BID 14 Days #28 tab Ibuprofen [Motrin Tab] 600 mg PO QID #42 tab Referrals: Efraín Sadler MD [Primary Care Provider] - Follow up with primary Forms: [employer] (Romanian), WORK NOTE
[2018-08-03 16:12] LABS: BASO # 0.02 K/mm3 (0.0-2.0); BASO % 0.2 % (0.0-3.0); EOS % 0.2 % (1.5-5.0); GRAN # 10.1 (1.4-6.5); GRAN % 80.4 % (50.0-68.0); HEMOGLOBIN 14.3 g/dL (12.0-16.0); LYMPH # 1.3 (1.2-3.4); LYMPH % 10.2 % (22.0-35.0); MEAN CELL VOLUME 93.4 fl (80.0-105.0); MEAN CORPUSCULAR HEMOGLOBIN 31.6 pg (25.0-35.0); MEAN CORPUSCULAR HGB CONC 33.9 g/dl (31.0-37.0); MEAN PLATELET VOLUME 11.1 fl (7.0-11.0); MONO # 1.1 (0.1-0.6); RBC 4.52 10^6/uL (3.5-6.1); RED CELL DISTRIBUTION WIDTH 12.2 % (11.5-14.5); VENOUS BLOOD GAS BASE EXCESS 0.2 mmol/L (0.0-2.0); VENOUS BLOOD GAS PO2 41 mm/Hg (30-55); VENOUS BLOOD PH 7.33 (7.32-7.43); WHITE BLOOD COUNT 12.6 10^3/uL (4.5-11.0)
[2018-08-03 16:16] LABS: URINE APPEARANCE CLOUDY (CLEAR); URINE BILIRUBIN NEGATIVE (NEGATIVE); URINE BLOOD MODERATE (NEGATIVE); URINE COLOR YELLOW (YELLOW); URINE GLUCOSE (UA) NEGATIVE (NEGATIVE); URINE LEUKOCYTE ESTERASE LARGE Leu/uL (NEGATIVE); URINE PROTEIN 100 mg/dL (<30 mg/dL); URINE UROBILINOGEN >=8.0 E.U./dL (<1 E.U./dL)
[2018-08-03 16:19] LABS: ALB/GLOB RATIO 1.3 (1.1-1.8); ALBUMIN 4.5 g/dL (3.0-4.8); ALT/SGPT 33 U/L (7-56); AST/SGOT 22 U/L (14-36); BLOOD UREA NITROGEN 8 mg/dL (7-21); CALCIUM 9.1 mg/dL (8.4-10.5); GFR NON-AFRICAN AMERICAN > 60
[2018-08-03 16:23] LABS: URINE BACTERIA MOD /hpf; URINE WBC TNTC /hpf (0-6)
[2018-08-03] MEDS ORDERED: cefTRIAXone 1 GM/100 ML BAG IVPB STA (16:35)
[2018-08-03 19:18] VITALS: BP 130/75; PULSE 68; TEMP 98.1; O2SAT 100
--- NOTE | 2018-08-04 09:22 | CT ---
Date of service: 08/03/2018 PROCEDURE: CT Abdomen and Pelvis without intravenous contrast HISTORY: right flank pain,stone COMPARISON: None. TECHNIQUE: Technique. Contrast dose: Radiation dose: Total exam DLP = 848.35 mGy-cm. This CT exam was performed using one or more of the following dose reduction techniques: Automated exposure control, adjustment of the mA and/or kV according to patient size, and/or use of iterative reconstruction technique. FINDINGS: LOWER THORAX: Unremarkable. LIVER: Unremarkable. No gross lesion or ductal dilatation. GALLBLADDER AND BILE DUCTS: Unremarkable. PANCREAS: Unremarkable. No gross lesion or ductal dilatation. SPLEEN: Unremarkable. ADRENALS: Unremarkable. No mass. KIDNEYS AND URETERS: Unremarkable. No hydronephrosis. No solid mass. VASCULATURE: Unremarkable. No aortic aneurysm. No aortic atherosclerotic calcification or mural plaque present. BOWEL: Unremarkable. No obstruction. No gross mural thickening. APPENDIX: Unremarkable. Normal appendix. PERITONEUM: Unremarkable. No free fluid. No free air. LYMPH NODES: Unremarkable. No enlarged lymph nodes. BLADDER: Unremarkable. REPRODUCTIVE: IUD in the endometrial canal BONES: No acute fracture. OTHER FINDINGS: The report concurs with the preliminary [facility] report IMPRESSION: No acute intra-abdominal findings
== END 2018-08-03 19:25 | disposition home or self-care (01) ==
LOC: ED 13:46
DX: N12 Tubulo-interstitial nephritis, not specified as acute or chronic (principal); Z97.5 Presence of (intrauterine) contraceptive device
CPT/HCPCS: 74176; 80053; 81001; 81025; 82803; 85025; 87040; 87086; 87181; 87804; 96361; 96374; 99284; J0696; J1885; J7030

== ENCOUNTER 2018-08-23 10:59 | Emergency (ER) | payer MEDICARE, OTHER ==
[2018-08-23 10:59] VITALS: BMI 32.8
[2018-08-23 11:12] VITALS: RESP 18; O2SAT 99
[2018-08-23] MEDS ORDERED: Sodium Chloride 0.9% 1,000 ML IV STA (11:47)
--- NOTE | 2018-08-23 12:03 | ED PDOC ---
Arrival/HPI - General Chief Complaint: Back Pain Time Seen by Provider: 08/23/18 11:08 Historian: Patient - History of Present Illness Narrative History of Present Illness (Text): 08/23/18 12:00 28yr old female presents today with a 3 day history of worsening back pain. pt states she was seen in the ER at the end of july for same pain and was diagnosed with pyelonephritis. pt states that the symptoms resolved for 1 week after she completed antibiotics and over the past 3 days the symptoms have returned. pt states she is have severe right sided back pain with radiating into the leg. she is also c/o left sided abdominal pain. pt denies numbness, weakness, tingling in the extremities. pt denies fever/chills. no dizziness or weakness. no vomiting/diarrhea. no medications have been taken for pain at home. no other complaints. Symptom Onset: Gradual Symptom Course: Worsening Quality: Aching, Stabbing Severity Level: Moderate Associated Symptoms (Text): 08/23/18 12:03 worse with movement and palpation Past Medical History - Provider Review Nursing Documentation Reviewed: Yes - Travel History Have you recently traveled outside [place] w/in the past 3 mons?: No - Reproductive Currently : No - Psychiatric Hx Substance Use: No - Surgical History Hx Section: Yes (x2) - Anesthesia Hx Anesthesia: Yes Hx Anesthesia Reactions: No Hx Malignant Hyperthermia: No Family/Social History - Physician Review Nursing Documentation Reviewed: Yes Family/Social History: Unknown Family HX Smoking Status: Heavy Smoker > 10 Cigarettes Daily Hx Alcohol Use: No Hx Substance Use: No Allergies/Home Meds Allergies/Adverse Reactions: Allergies No Known Allergies Allergy (Verified 08/23/18 11:12) Review of Systems - Review of Systems Constitutional: absent: Fatigue, Fevers Respiratory: absent: SOB, Cough Cardiovascular: absent: Chest Pain, Palpitations Gastrointestinal: Abdominal Pain. absent: Constipation, Diarrhea, Nausea, Vomiting Genitourinary Female: absent: Dysuria, Frequency, Hematuria Musculoskeletal: Back Pain. absent: Neck Pain Skin: absent: Rash, Pruritis Neurological: absent: Headache, Dizziness Psychiatric: absent: Anxiety, Depression Physical Exam Vital Signs Reviewed: Yes Vital Signs Temp Pulse Resp BP Pulse Ox 08/23/18 11:09 97.7 F 71 18 120/79 99 Temperature: Afebrile Blood Pressure: Normal Pulse: Regular Respiratory Rate: Normal Appearance: Positive for: Well-Appearing, Non-Toxic, Comfortable Pain Distress: None Mental Status: Positive for: Alert and Oriented X 3 - Systems Exam Head: Present: Atraumatic Mouth: Present: Moist Mucous Membranes Neck: Present: Normal Range of Motion Respiratory/Chest: Present: Clear to Auscultation, Good Air Exchange. No: Respiratory Distress, Accessory Muscle Use Cardiovascular: Present: Regular Rate and Rhythm, Normal S1, S2. No: Murmurs Abdomen: Present: Tenderness (+ minimal llq tenderness. minimal suprapubic tenderness). No: Distention, Normal Bowel Sounds, Rebound, Guarding Back: Present: Normal Inspection, Paraspinal Tenderness (+ low thoracic lumbar right sided paraspinal tenderness. ), Pain with Leg Raise (+ straight leg raise on right. ), Other (no erythema. no edema). No: CVA Tenderness, Midline Tenderness Upper Extremity: Present: Normal Inspection, Normal ROM Lower Extremity: Present: Normal Inspection, Normal ROM Neurological: Present: GCS=15, Speech Normal Skin: Present: Warm, Dry, Normal Color. No: Rashes Psychiatric: Present: Alert, Oriented x 3 Medical Decision Making ED Course and Treatment: 08/23/18 12:11 Patient is nontoxic well appearing with stable vital signs presenting with right sided back pain radiating to right leg pain and abdominal pain x 3 days. no trauma or injury. . no urinary symptoms. pt afebrile. no distress. resting comfortably. pain worse with movement and palpation. no midline tenderness. + right sided paraspinal tenderness. + straight leg raise on right side. pt with hx of pyleonephritis on right side with same complaints last month. will check ua/ct. CBC wnl CMP wnl Lipase wnl Urinalysis wnl CAT scan: FINDINGS: LOWER THORAX: Unremarkable. LIVER: Unremarkable. No gross lesion or ductal dilatation. GALLBLADDER AND BILE DUCTS: Unremarkable. PANCREAS: Unremarkable. No gross lesion or ductal dilatation. SPLEEN: Unremarkable. ADRENALS: Unremarkable. No mass. KIDNEYS AND URETERS: Unremarkable. No hydronephrosis. No solid mass. VASCULATURE: Unremarkable. No aortic aneurysm. No aortic atherosclerotic calcification or mural plaque present. BOWEL: Unremarkable. No obstruction. No gross mural thickening. APPENDIX: Normal appendix. PERITONEUM: Unremarkable. No free fluid. No free air. LYMPH NODES: Unremarkable. No enlarged lymph nodes. BLADDER: Unremarkable. REPRODUCTIVE: There is an IUD in place. BONES: No acute fracture. OTHER FINDINGS: None. IMPRESSION: No acute intra-abdominal findings toradol and valium given. Patient reassessment: pt feeling better after medications. ambulating with steady gait. states pain has completely resolved. pt wants to go home. Discussed all results with patient in depth pt seen and evaluated by dr. rodney; will d/c home to f/u with PMd and back specialist. advised immediate return if symptoms worsen, persist or if new symptoms develop. Patient verbalizes understanding of discharge instructions and need for immediate followup. Impression: Back pain Motrin every 6 hours as needed for pain Valium; 1 tablet every 8 hours as needed for muscle spasms; may cause drowsiness Follow up with primary care physician within the next 2 days follow up with the back specialist within the next 2 days. Return immediately if symptoms worsen persist or if new symptoms develop: High fevers, increasing pain, vomiting, diarrhea or any other concerning symptoms develop Reassessment Condition: Re-examined, Improved - RAD Interpretation Radiology Orders: 08/23/18 11:50 ABD & PELVIS IV CONTRAST ONLY [CT] Stat - Medication Orders Current Medication Orders: Sodium Chloride (Sodium Chloride 0.9%) 1,000 mls @ 999 mls/hr IV .Q1H1M STA Stop: 08/23/18 12:47 Disposition/Present on Arrival - Present on Arrival Any Indicators Present on Arrival: No History of DVT/PE: No History of Uncontrolled Diabetes: No Urinary Catheter: No History of Decub. Ulcer: No History Surgical Site Infection Following: None - Disposition Have Diagnosis and Disposition been Completed?: Yes Diagnosis: Back pain Disposition: HOME/ ROUTINE Disposition Time: 15:02 Patient Plan: Discharge Condition: GOOD Discharge Instructions (ExitCare): Low Back Pain in Adults Additional Instructions: Motrin every 6 hours as needed for pain Valium; 1 tablet every 8 hours as needed for muscle spasms; may cause drowsiness Follow up with primary care physician within the next 2 days follow up with the back specialist within the next 2 days. Return immediately if symptoms worsen persist or if new symptoms develop: High fevers, increasing pain, vomiting, diarrhea or any other concerning symptoms develop Prescriptions: diaZEpam [Valium] 2 mg PO Q8H PRN #6 tab PRN Reason: muscle spasms Ibuprofen [Motrin] 600 mg PO Q6H PRN #20 tab PRN Reason: pain/fever reduction Referrals: Luz Marina Diaz MD [Medical Doctor] - Follow up with primary Omega Jacobson MD [Staff Provider] - Follow up with primary [facility] [Outside] - Follow up with primary [facility] [Outside] - Follow up with primary Forms: [employer] [facility] (Mosotho), WORK NOTE
[2018-08-23 12:27] LABS: BASO # 0.02 K/mm3 (0.0-2.0); BASO % 0.2 % (0.0-3.0); EOS # 0.3 (0.0-0.7); EOS % 3.9 % (1.5-5.0); HEMOGLOBIN 14.4 g/dL (12.0-16.0); LYMPH # 2.6 (1.2-3.4); LYMPH % 32.3 % (22.0-35.0); MEAN CELL VOLUME 92.9 fl (80.0-105.0); MEAN CORPUSCULAR HEMOGLOBIN 31.2 pg (25.0-35.0); MEAN CORPUSCULAR HGB CONC 33.6 g/dl (31.0-37.0); MEAN PLATELET VOLUME 11.1 fl (7.0-11.0); MONO # 0.6 (0.1-0.6); RBC 4.62 10^6/uL (3.5-6.1); RED CELL DISTRIBUTION WIDTH 12.4 % (11.5-14.5); WHITE BLOOD COUNT 8.1 10^3/uL (4.5-11.0)
[2018-08-23 12:28] LABS: URINE BILIRUBIN NEGATIVE (NEGATIVE); URINE BLOOD NEGATIVE (NEGATIVE); URINE GLUCOSE (UA) NEGATIVE (NEGATIVE); URINE LEUKOCYTE ESTERASE NEGATIVE Leu/uL (NEGATIVE); URINE PROTEIN NEGATIVE mg/dL (<30 mg/dL); URINE UROBILINOGEN 0.2 E.U./dL (<1 E.U./dL)
[2018-08-23 12:30] LABS: URINE APPEARANCE CLEAR (CLEAR); URINE COLOR YELLOW (YELLOW)
[2018-08-23 12:40] LABS: ALB/GLOB RATIO 1.3 (1.1-1.8); ALBUMIN 4.5 g/dL (3.0-4.8); ALT/SGPT 12 U/L (7-56); AST/SGOT 22 U/L (14-36); BLOOD UREA NITROGEN 9 mg/dL (7-21); CALCIUM 9.5 mg/dL (8.4-10.5); GFR NON-AFRICAN AMERICAN > 60; LIPASE 69 U/L (23-300)
[2018-08-23] MEDS ORDERED: Iohexol 350 MG/100 ML VIAL ONE (13:45)
--- NOTE | 2018-08-23 14:27 | CT ---
Date of service: 08/23/2018 PROCEDURE: CT Abdomen and Pelvis with contrast HISTORY: back pain COMPARISON: 08/03/2018 TECHNIQUE: Contrast dose: 100 cc of Omni 350 Radiation dose: Total exam DLP = 804.57 mGy-cm. This CT exam was performed using one or more of the following dose reduction techniques: Automated exposure control, adjustment of the mA and/or kV according to patient size, and/or use of iterative reconstruction technique. FINDINGS: LOWER THORAX: Unremarkable. LIVER: Unremarkable. No gross lesion or ductal dilatation. GALLBLADDER AND BILE DUCTS: Unremarkable. PANCREAS: Unremarkable. No gross lesion or ductal dilatation. SPLEEN: Unremarkable. ADRENALS: Unremarkable. No mass. KIDNEYS AND URETERS: Unremarkable. No hydronephrosis. No solid mass. VASCULATURE: Unremarkable. No aortic aneurysm. No aortic atherosclerotic calcification or mural plaque present. BOWEL: Unremarkable. No obstruction. No gross mural thickening. APPENDIX: Normal appendix. PERITONEUM: Unremarkable. No free fluid. No free air. LYMPH NODES: Unremarkable. No enlarged lymph nodes. BLADDER: Unremarkable. REPRODUCTIVE: There is an IUD in place. BONES: No acute fracture. OTHER FINDINGS: None. IMPRESSION: No acute intra-abdominal findings
[2018-08-23 15:47] VITALS: BP 106/66; PULSE 79; TEMP 98.5
== END 2018-08-23 15:46 | disposition home or self-care (01) ==
LOC: ED 10:59
DX: M54.9 Dorsalgia, unspecified (principal); F17.210 Nicotine dependence, cigarettes, uncomplicated
CPT/HCPCS: 74177; 80053; 81003; 81025; 83690; 85025; 87040; 87086; 96361; 96374; 99283; J1885; J7030; Q9967

== ENCOUNTER 2018-09-23 16:00 | Emergency (ER) | payer MEDICARE, OTHER ==
[2018-09-23 16:02] VITALS: BMI 32.8
[2018-09-23 16:27] VITALS: RESP 18; O2SAT 98
[2018-09-23] MEDS ORDERED: Tmp-Smz 800 mg-160 mg DS Tab PO STA (16:37)
[2018-09-23] MEDS ORDERED: Lidocaine 1% Inj (20ml) IJ STA (16:39)
--- NOTE | 2018-09-23 17:21 | ED PDOC ---
Arrival/HPI - General Chief Complaint: Abnormal Skin Integrity Time Seen by Provider: 09/23/18 16:03 Historian: Patient - History of Present Illness Narrative History of Present Illness (Text): 09/23/18 16:43 28 y/o tobacco-smoking female with no significant PMH presents to the ED for wound check of right thigh abscess s/p I&D with packing. Pt had a tattoo done in the area of the pain 3 weeks ago without complication, and 5 days ago developed an area of redness and induration and warmth over the medial edge of the tattoo on the right upper anterior thigh. [facility] and had an I&D performed, with packing placed. States she was not given any followup instructions, prompting visit to ED today. Pt has not taken any medication for pain and states she has not yet been able to fill her antibiotic prescriptions, the name of which are unknown. Denies fevers, chills, nausea, vomiting, abdominal pain, dizziness, headache, numbness, weakness, paresthesias, urinary complaints, or any other associated symptoms. Past Medical History - Provider Review Nursing Documentation Reviewed: Yes - Infectious Disease Hx of Infectious Diseases: None - Reproductive Menopause: No - Psychiatric Hx Substance Use: No - Surgical History Hx Section: Yes (x2) - Anesthesia Hx Anesthesia: Yes Hx Anesthesia Reactions: No Hx Malignant Hyperthermia: No Family/Social History - Physician Review Nursing Documentation Reviewed: Yes Family/Social History: No Known Family HX Smoking Status: Heavy Smoker > 10 Cigarettes Daily Hx Alcohol Use: No Hx Substance Use: No Allergies/Home Meds Allergies/Adverse Reactions: Allergies No Known Allergies Allergy (Verified 08/23/18 11:12) Review of Systems - Review of Systems Constitutional: Normal. absent: Fatigue, Fevers Eyes: Normal. absent: Vision Changes, Photophobia ENT: Normal Respiratory: Normal. absent: SOB, Cough Cardiovascular: Normal. absent: Chest Pain, Palpitations Gastrointestinal: Normal. absent: Abdominal Pain, Nausea, Vomiting Genitourinary Female: Normal. absent: Dysuria, Frequency Musculoskeletal: Normal. absent: Back Pain Skin: Cellulitis Neurological: Normal. absent: Headache, Dizziness Endocrine: Normal Hemo/Lymphatic: Normal Psychiatric: Normal Physical Exam Vital Signs Reviewed: Yes Vital Signs Temp Pulse Resp BP Pulse Ox 09/23/18 16:17 98.6 F 94 H 18 123/78 98 Temperature: Afebrile Blood Pressure: Normal Pulse: Regular Respiratory Rate: Normal Appearance: Positive for: Well-Appearing, Non-Toxic, Comfortable Pain Distress: None Mental Status: Positive for: Alert and Oriented X 3 - Systems Exam Head: Present: Atraumatic, Normocephalic Pupils: Present: PERRL Extroacular Muscles: Present: EOMI Conjunctiva: Present: Normal Mouth: Present: Moist Mucous Membranes Neck: Present: Normal Range of Motion Respiratory/Chest: Present: Clear to Auscultation, Good Air Exchange. No: Respiratory Distress, Accessory Muscle Use Cardiovascular: Present: Regular Rate and Rhythm, Normal S1, S2 Upper Extremity: Present: Normal Inspection, Normal ROM, NORMAL PULSES, Neurovascularly Intact, Capillary Refill < 2s. No: Cyanosis, Edema, Temperature Abnormalties Lower Extremity: Present: NORMAL PULSES, Normal ROM, Tenderness (right upper anterior thigh), Erythema (right upper anterior thigh), Temperature Abnormalties (right upper anterior thigh), Neurovascularly Intact, Capillary Refill < 2 s. No: Normal Inspection (see skin exam), Edema, Swelling, Deformity Neurological: Present: GCS=15, CN II-XII Intact, Speech Normal, Motor Func Grossly Intact, Normal Sensory Function, Gait Normal Skin: Present: Warm, Dry, Induration ([id number] area of erythema, warmth, and induration with central 1cm incision with packing in place to right upper anterior thigh. No fluctuance, no drainage. No circumferential redness.), Other (no signs of infection to remainder of tattoo of right upper anterior thigh). No: Rashes Lymphatic: No: Cervical Adenopathy Psychiatric: Present: Alert, Oriented x 3, Normal Insight, Normal Concentration, Normal Affect, Normal Mood Medical Decision Making ED Course and Treatment: Initial Plan: * Packing removal * Wound irrigation * Replace packing * Keflex * Bactrim * Ibuprofen * Wound culture Case discussed with ED attending Dr. Fuentes, who agrees with plan of care and disposition. Anesthesized area with 3cc 1% lidocaine, packing removed. No further purulence noted, no incision made. Wound culture obtained. Irrigated with 200cc NS. Re- packed with 1/4" iodoform packing, sterile dressing applied. Pt tolerated well without complication. Advised return in 48 hours for packing removal and wound check. Keflex and Bactrim prescribed, first dose given here. Ibuprofen prescribed for pain. Advised PMD/clinic followup within 2 days in addition to wound check. Pt educated on appropriate wound care. Diagnostic testing results and plan of care discussed with patient. Strict instructions given regarding prescription use, importance of followup, and signs/symptoms to return to ER including worsening redness, drainage, nausea, vomiting, fever, or any other new/worsening symptoms. Pt verbalized understanding of discussion. Patient is A&Ox3, ambulating with steady gait, with vital signs stable for discharge. - Medication Orders Current Medication Orders: Discontinued Medications Cephalexin Monohydrate (Keflex) 500 mg PO STAT STA; Protocol Stop: 09/23/18 16:38 Ibuprofen (Motrin Tab) 600 mg PO STAT STA Stop: 09/23/18 16:41 Lidocaine HCl (Lidocaine 1% (20ml)) 10 ml IJ STAT STA Stop: 09/23/18 16:40 Trimethoprim/Sulfamethoxazole (Bactrim Ds Tab) 1 tab PO STAT STA; Protocol Stop: 09/23/18 16:38 Disposition/Present on Arrival - Present on Arrival Any Indicators Present on Arrival: No History of DVT/PE: No History of Uncontrolled Diabetes: No Urinary Catheter: No History of Decub. Ulcer: No History Surgical Site Infection Following: None - Disposition Have Diagnosis and Disposition been Completed?: Yes Diagnosis: Wound check, abscess Disposition: HOME/ ROUTINE Disposition Time: 17:45 Patient Plan: Discharge Condition: STABLE Discharge Instructions (ExitCare): Abscess Incision and Drainage, Wound Care (DC) Print Language: UPPER SORBIAN Additional Instructions: DEVOLUCIN PARA CHEQUE DE HERIDA EN 2 MA Keflex cada 6 horas toño 7 ma Bactrim cada 12 horas toño 7 ma. Ibuprofeno cada 8 horas segn sea necesario para el dolor, con alimentos. Mantenga la herida limpia, seca y cubierta. Seguimiento con mdico primario en 2 ma. Regrese a la les de emergencias con cualquier sntoma nuevo o que empeore Prescriptions: Cephalexin [Keflex] 500 mg PO QID 7 Days #28 capsule Ibuprofen [Motrin Tab] 600 mg PO Q8 #30 tab Sulfamethoxazole/Trimethoprim [Bactrim DS 800 mg-160 mg] 1 tab PO Q12 #14 tab Referrals: Efraín Sadler MD [Primary Care Provider] - Follow up with primary Forms: [employer] (Bengali), WORK NOTE
[2018-09-23 19:29] VITALS: BP 124/78; PULSE 82; TEMP 98
== END 2018-09-23 19:29 | disposition home or self-care (01) ==
LOC: ED 16:00
DX: Z48.00 Encounter for change or removal of nonsurgical wound dressing (principal); F17.210 Nicotine dependence, cigarettes, uncomplicated

== ENCOUNTER 2018-09-25 08:42 | Emergency (ER) | payer MEDICARE, OTHER | END 2018-09-25 09:24 | disposition home or self-care (01) | LOC: ED 08:42 ==

== ENCOUNTER 2018-10-22 13:34 | Emergency (ER) | payer MEDICARE, OTHER ==
[2018-10-22 14:20] VITALS: BMI 35.9
--- NOTE | 2018-10-22 14:35 | ED PDOC ---
Arrival/HPI - General Chief Complaint: Abdominal Pain Historian: Patient - History of Present Illness Narrative History of Present Illness (Text): 10/22/18 14:31 28 y/o female, pmh including pelvic mass/hemorrhagic ovarian cyst, nkda, c/o rt. lower abdominal pain x 2 days with no fall or trauma. Aching pain, on and off, seen in the ER for similar complain about 1 year ago, told to see obgyn, no numbness or tingling, no nausea/vomiting/diarrhea, no dizziness, no palpitation, no other medical or psychological complaints. Past Medical History - Provider Review Nursing Documentation Reviewed: Yes - Infectious Disease Hx of Infectious Diseases: None - Psychiatric Hx Substance Use: No - Surgical History Hx Section: Yes (x2) - Anesthesia Hx Anesthesia: Yes Hx Anesthesia Reactions: No Hx Malignant Hyperthermia: No Family/Social History - Physician Review Nursing Documentation Reviewed: Yes Family/Social History: Unknown Family HX Smoking Status: Heavy Smoker > 10 Cigarettes Daily Hx Alcohol Use: No Hx Substance Use: No Allergies/Home Meds Allergies/Adverse Reactions: Allergies No Known Allergies Allergy (Verified 08/23/18 11:12) Review of Systems - Review of Systems Constitutional: absent: Fatigue, Fevers Eyes: absent: Vision Changes ENT: absent: Hearing Changes Respiratory: absent: SOB, Cough Cardiovascular: absent: Chest Pain Gastrointestinal: Abdominal Pain. absent: Diarrhea, Nausea, Vomiting Musculoskeletal: absent: Arthralgias, Back Pain Skin: absent: Rash, Pruritis Neurological: absent: Headache, Dizziness, Speech Changes Psychiatric: absent: Anxiety, Depression, Suicidal Ideation Physical Exam - Systems Exam Head: Present: Atraumatic, Normocephalic Pupils: Present: PERRL Extroacular Muscles: Present: EOMI Conjunctiva: Present: Normal Mouth: Present: Moist Mucous Membranes Nose (External): Present: Atraumatic. No: Abrasion, Contusion, Laceration, Lesions Nose (Internal): Present: Normal Inspection, No Active Bleeding. No: Rhinorrhea, Septal Hematoma, Epistaxis Neck: Present: Normal Range of Motion Respiratory/Chest: Present: Clear to Auscultation, Good Air Exchange. No: Respiratory Distress, Accessory Muscle Use, Wheezes, Decreased Breath Sounds, Rales, Retracting, Rhonchi, Tachypneic, Tender to Palpation Cardiovascular: Present: Regular Rate and Rhythm, Normal S1, S2. No: Murmurs Abdomen: Present: Tenderness (RLQ). No: Distention, Peritoneal Signs, Rebound, Guarding Genitourinary/Pelvic Exam: Present: Other (Pt. declined pelvic exam. ) Back: Present: Normal Inspection. No: CVA Tenderness, Midline Tenderness, Paraspinal Tenderness, Pain with Leg Raise, Decubitus Ulcer Upper Extremity: Present: Normal Inspection. No: Cyanosis, Edema Lower Extremity: Present: Normal Inspection, NORMAL PULSES, Normal ROM, Neurovascularly Intact, Capillary Refill < 2 s. No: Edema, Deformity Neurological: Present: GCS=15, CN II-XII Intact, Speech Normal, Motor Func Grossly Intact, Normal Cerebellar Funct, Gait Normal, Memory Normal Skin: Present: Warm, Dry, Normal Color. No: Rashes Lymphatic: No: Cervical Adenopathy, Axillary Adenopathy Psychiatric: Present: Alert, Oriented x 3, Normal Insight, Normal Concentration Medical Decision Making ED Course and Treatment: 10/22/18 14:34 -Labs -CT abdomen and pelvis -Trans vaginal sonogram -IV toradol/fluid -Observe and reassess 10/22/18 16:56 -Urine hcg is negative -CT abdomen and pelvis Bilateral adnexal cysts. The dominant cyst resides in the right adnexa and contains debris and material better visualized as complex on the ultrasound. Simple cyst in an anterior located left adnexa. -Transvaginal sonogram No acute or significant findings related to/ accounting for the clinical presentation. Additional benign and/or incidental findings described above. No significant interval change compared to the prior examination(s). Limitations of the current examination: Nonvisualization left adnexa. -Labs are nonsignificant -UA show no UTI -Pt. has no left sided or left pelvic pain. -Pt. feels well, much better, no pain and asymptomatic, discussed about the labs/radiology results, request to be discharged home. -Discharge home with motrin ,follow up with your own pmd and obgyn within2 days, return to the ER for any new or worsening sigsn or symptoms. - RAD Interpretation Radiology Orders: 10/22/18 14:30 ABD & PELVIS IV CONTRAST ONLY [CT] Stat TRANSVAGINAL [US] Stat CT abdomen and pelvis: Date of service: 10/22/2018 PROCEDURE: CT Abdomen and Pelvis with contrast HISTORY: RLQ pain COMPARISON: 08/23/2018. CT abdomen and pelvis. October 22, 2018. Pelvic ultrasound. TECHNIQUE: Intravenous contrast dose: 150 cc Omnipaque 350. Radiation dose: Total exam DLP = 1124.51 mGy-cm. This CT exam was performed using one or more of the following dose reduction techniques: Automated exposure control, adjustment of the mA and/or kV according to patient size, and/or use of iterative reconstruction technique. FINDINGS: LOWER THORAX: Unremarkable. LIVER: Unremarkable. No gross lesion or ductal dilatation. GALLBLADDER AND BILE DUCTS: Unremarkable. PANCREAS: Unremarkable. No gross lesion or ductal dilatation. SPLEEN: Unremarkable. ADRENALS: Unremarkable. No mass. KIDNEYS AND URETERS: Unremarkable. No hydronephrosis. No solid mass. VASCULATURE: Unremarkable. No aortic aneurysm. No atherosclerotic calcification or mural plaque present. BOWEL: Unremarkable. No obstruction. No gross mural thickening. APPENDIX: A normal appendix is visualized in it's entirety. PERITONEUM: Unremarkable. No free fluid. No free air. LYMPH NODES: Unremarkable. No enlarged lymph nodes. BLADDER: Unremarkable. REPRODUCTIVE: Enlarged right ovary primarily a cystic component measures 4 x 5.1 cm. Hounsfield unit values range from 17-37. Comparison with the concurrent ultrasound suggests the findings in the right adnexa include debris. Cystic structure in the a anterior left hemipelvis likely left adnexal cyst based on mean Hounsfield units. This measures 2.1 x 2.8 cm. Intrauterine contraceptive device (IUD) identified BONES: No acute fracture. OTHER FINDINGS: None. IMPRESSION: Bilateral adnexal cysts. The dominant cyst resides in the right adnexa and contains debris and material better visualized as complex on the ultrasound. Simple cyst in an anterior located left adnexa. Transvaginal sonogram Date of service: 10/22/2018 HISTORY: RLQ pain LMP by history 2 months ago. Cycles are irregular. COMPARISON: 08/23/2018. CT abdomen and pelvis. 10/23/2017. Pelvic ultrasound TECHNIQUE: Transvaginal only. Real -time technique with 2D, duplex and color Doppler FINDINGS: UTERUS: Measures 3.3 x 6 3 x 7.2 cm. Heterogeneous echo characteristics. No fibroid or other mass lesion seen. ENDOMETRIUM: Measures 3.1 mm in diameter. Intrauterine contraceptive device (IUD) identified CERVIX: No cervical abnormality identified. RIGHT OVARY: Measures 4.4 x 5 x 5 cm. No solid mass. Normal flow. Enlarged right ovary similar to that seen previously. LEFT OVARY: Not visible. FREE FLUID: No significant free fluid noted. OTHER FINDINGS: None. IMPRESSION: No acute or significant findings related to/ accounting for the clinical presentation. Additional benign and/or incidental findings described above. No significant interval change compared to the prior examination(s). Limitations of the current examination: Nonvisualization left adnexa. Stem Threshing Machine Operator: Radiologist - PA / TRANSPLANT RN / Resident Statement /DO has reviewed & agrees with the documentation as recorded. Disposition/Present on Arrival - Present on Arrival Any Indicators Present on Arrival: No History of DVT/PE: No History of Uncontrolled Diabetes: No Urinary Catheter: No History of Decub. Ulcer: No History Surgical Site Infection Following: None - Disposition Have Diagnosis and Disposition been Completed?: Yes Diagnosis: Ovarian cyst Disposition: HOME/ ROUTINE Disposition Time: 16:58 Patient Plan: Discharge Condition: GOOD Additional Instructions: -Discharge home with motrin ,follow up with your own pmd and obgyn within2 days, return to the ER for any new or worsening sigsn or symptoms. Prescriptions: Ibuprofen [Motrin] 600 mg PO QID PRN #30 tab PRN Reason: Other Referrals: Roberto Nair MD [Staff Provider] - Follow up with primary [facility] [place] - Follow up with primary Forms: [employer] (Thai), WORK NOTE
[2018-10-22 15:09] LABS: ALB/GLOB RATIO 1.4 (1.1-1.8); ALBUMIN 3.8 g/dL (3.0-4.8); ALT/SGPT 30 U/L (7-56); AST/SGOT 23 U/L (14-36); BLOOD UREA NITROGEN 10 mg/dL (7-21); CALCIUM 9.3 mg/dL (8.4-10.5); GFR NON-AFRICAN AMERICAN > 60
[2018-10-22 15:16] LABS: URINE BILIRUBIN NEGATIVE (NEGATIVE); URINE BLOOD NEGATIVE (NEGATIVE); URINE GLUCOSE (UA) NEGATIVE (NEGATIVE); URINE LEUKOCYTE ESTERASE NEGATIVE Leu/uL (NEGATIVE); URINE PROTEIN NEGATIVE mg/dL (<30 mg/dL)
[2018-10-22 15:20] LABS: BASO # 0.04 K/mm3 (0.0-2.0); BASO % 0.4 % (0.0-3.0); EOS # 0.5 (0.0-0.7); EOS % 5.1 % (1.5-5.0); HEMOGLOBIN 13.8 g/dL (12.0-16.0); LYMPH # 3.1 (1.2-3.4); MEAN CELL VOLUME 92.7 fl (80.0-105.0); MEAN CORPUSCULAR HEMOGLOBIN 31.5 pg (25.0-35.0); MEAN PLATELET VOLUME 10.5 fl (7.0-11.0); MONO # 0.6 (0.1-0.6); MONO % 6.4 % (1.0-6.0); RBC 4.38 10^6/uL (3.5-6.1); RED CELL DISTRIBUTION WIDTH 12.7 % (11.5-14.5); URINE APPEARANCE CLEAR (CLEAR); URINE COLOR YELLOW (YELLOW); WHITE BLOOD COUNT 9.3 10^3/uL (4.5-11.0)
--- NOTE | 2018-10-22 15:48 | US ---
Date of service: 10/22/2018 HISTORY: RLQ pain LMP by history 2 months ago. Cycles are irregular. COMPARISON: 08/23/2018. CT abdomen and pelvis. 10/23/2017. Pelvic ultrasound TECHNIQUE: Transvaginal only. Real -time technique with 2D, duplex and color Doppler FINDINGS: UTERUS: Measures 3.3 x 6 3 x 7.2 cm. Heterogeneous echo characteristics. No fibroid or other mass lesion seen. ENDOMETRIUM: Measures 3.1 mm in diameter. Intrauterine contraceptive device (IUD) identified CERVIX: No cervical abnormality identified. RIGHT OVARY: Measures 4.4 x 5 x 5 cm. No solid mass. Normal flow. Enlarged right ovary similar to that seen previously. LEFT OVARY: Not visible. FREE FLUID: No significant free fluid noted. OTHER FINDINGS: None. IMPRESSION: No acute or significant findings related to/ accounting for the clinical presentation. Additional benign and/or incidental findings described above. No significant interval change compared to the prior examination(s). Limitations of the current examination: Nonvisualization left adnexa.
--- NOTE | 2018-10-22 16:47 | CT ---
Date of service: 10/22/2018 PROCEDURE: CT Abdomen and Pelvis with contrast HISTORY: RLQ pain COMPARISON: 08/23/2018. CT abdomen and pelvis. October 22, 2018. Pelvic ultrasound. TECHNIQUE: Intravenous contrast dose: 150 cc Omnipaque 350. Radiation dose: Total exam DLP = 1124.51 mGy-cm. This CT exam was performed using one or more of the following dose reduction techniques: Automated exposure control, adjustment of the mA and/or kV according to patient size, and/or use of iterative reconstruction technique. FINDINGS: LOWER THORAX: Unremarkable. LIVER: Unremarkable. No gross lesion or ductal dilatation. GALLBLADDER AND BILE DUCTS: Unremarkable. PANCREAS: Unremarkable. No gross lesion or ductal dilatation. SPLEEN: Unremarkable. ADRENALS: Unremarkable. No mass. KIDNEYS AND URETERS: Unremarkable. No hydronephrosis. No solid mass. VASCULATURE: Unremarkable. No aortic aneurysm. No atherosclerotic calcification or mural plaque present. BOWEL: Unremarkable. No obstruction. No gross mural thickening. APPENDIX: A normal appendix is visualized in it's entirety. PERITONEUM: Unremarkable. No free fluid. No free air. LYMPH NODES: Unremarkable. No enlarged lymph nodes. BLADDER: Unremarkable. REPRODUCTIVE: Enlarged right ovary primarily a cystic component measures 4 x 5.1 cm. Hounsfield unit values range from 17-37. Comparison with the concurrent ultrasound suggests the findings in the right adnexa include debris. Cystic structure in the a anterior left hemipelvis likely left adnexal cyst based on mean Hounsfield units. This measures 2.1 x 2.8 cm. Intrauterine contraceptive device (IUD) identified BONES: No acute fracture. OTHER FINDINGS: None. IMPRESSION: Bilateral adnexal cysts. The dominant cyst resides in the right adnexa and contains debris and material better visualized as complex on the ultrasound. Simple cyst in an anterior located left adnexa.
[2018-10-22 18:41] VITALS: BP 120/79; PULSE 80; RESP 99; O2SAT 100
== END 2018-10-22 18:43 | disposition home or self-care (01) ==
LOC: ED 13:34
DX: N83.202 Unspecified ovarian cyst, left side (principal); N83.201 Unspecified ovarian cyst, right side; F17.210 Nicotine dependence, cigarettes, uncomplicated
CPT/HCPCS: 74177; 76830; 80053; 81003; 81025; 85025; 96374; 99283; J1885; Q9967

== ENCOUNTER 2018-12-09 13:39 | Emergency (ER) | payer MEDICARE, OTHER ==
[2018-12-09 13:58] VITALS: TEMP 97.8; O2SAT 99; BMI 35.4
--- NOTE | 2018-12-09 15:54 | ED PDOC ---
Arrival/HPI - General Historian: Patient - History of Present Illness Narrative History of Present Illness (Text): 12/09/18 15:55 CC: lower back pain HPI: 28 yo female w/ PMH of ovarian cysts comes to ED for evaluation of low back pain that started 2 weeks ago. Patient states it is sharp in nature, located in the upper lumbar region, not relieved with Motrin. Patient states she decided to come today because the pain has progressively worsened limiting mobility due to the pain. Patient states this pain is not similar due to her previous visits because the pain radiates into her left lower extremity with numbness and tingling. Patient states it it more difficult for her to lay flat and the pain is alleviated by bending forward. Patient denies any trauma to the location. 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 Admits to low back pain, numbness and tingling. Denies fevers, chills, chest pain, sob, n/v, constipation or diarrhea, bowel/bladder incontinence, dysuria. Time/Duration: > week Symptom Onset: Gradual Symptom Course: Worsening Quality: Aching Severity Level: 9 Activities at Onset: Rest Context: Sitting <DustinMadaser - Last Filed: 12/09/18 18:37> <Suzi Ross - Last Filed: 12/09/18 18:51> - General Chief Complaint: Back Pain Time Seen by Provider: 12/09/18 15:30 Past Medical History - Provider Review Nursing Documentation Reviewed: Yes Primary Care Provider: Latanya Juares V - Infectious Disease Hx of Infectious Diseases: None - Psychiatric Hx Substance Use: No - Surgical History Hx Section: Yes (x2) - Anesthesia Hx Anesthesia: Yes Hx Anesthesia Reactions: No Hx Malignant Hyperthermia: No <DustinMadaser - Last Filed: 12/09/18 18:37> Family/Social History - Physician Review Nursing Documentation Reviewed: Yes Family/Social History: No Known Family HX Smoking Status: Heavy Smoker > 10 Cigarettes Daily Hx Alcohol Use: No Hx Substance Use: No <Dustin,Madaser - Last Filed: 12/09/18 18:37> Allergies/Home Meds <DustinMadaser - Last Filed: 12/09/18 18:37> <Suzi Ross - Last Filed: 12/09/18 18:51> Allergies/Adverse Reactions: Allergies No Known Allergies Allergy (Verified 12/09/18 15:37) Review of Systems - Review of Systems Constitutional: Normal. absent: Fatigue, Weight Change, Fevers Eyes: Normal. absent: Vision Changes, Photophobia, Eye Pain ENT: Normal. absent: Hearing Changes, Tinnitus Respiratory: Normal. absent: SOB, Cough, Sputum Cardiovascular: Normal. absent: Chest Pain, Palpitations, Edema Gastrointestinal: Normal. absent: Abdominal Pain, Stool Changes, Constipation, Diarrhea Genitourinary Female: Normal. absent: Dysuria, Frequency, Hematuria Musculoskeletal: Back Pain. absent: Normal, Arthralgias, Neck Pain, Joint Swelling Skin: Normal. absent: Rash, Pruritis, Skin Lesions, Laceration, Abscess Neurological: Other (numbness and tingling in left lower extremity) Endocrine: Normal. absent: Diaphoresis, Polyuria, Polydipsia Hemo/Lymphatic: Normal. absent: Adenopathy, Easy Bleeding, Easy Bruising Psychiatric: Normal. absent: Anxiety, Depression, Suicidal Ideation <Mitchell Chan - Last Filed: 12/09/18 18:37> Physical Exam Vital Signs Reviewed: Yes Vital Signs Temp Pulse Resp BP Pulse Ox 12/09/18 13:56 97.8 F 96 H 18 127/82 99 Temperature: Afebrile Blood Pressure: Normal Pulse: Regular Respiratory Rate: Normal Appearance: Positive for: Uncomfortable Pain Distress: Moderate Mental Status: Positive for: Alert and Oriented X 3 - Systems Exam Head: Present: Atraumatic, Normocephalic. No: Tenderness, Ecchymosis, Abrasion Pupils: Present: PERRL Extroacular Muscles: Present: EOMI Conjunctiva: Present: Normal Mouth: Present: Moist Mucous Membranes Respiratory/Chest: Present: Clear to Auscultation, Good Air Exchange. No: Respiratory Distress, Accessory Muscle Use Cardiovascular: Present: Regular Rate and Rhythm, Normal S1, S2. No: Murmurs, Tachycardic Abdomen: Present: Normal Bowel Sounds. No: Tenderness, Distention, Peritoneal Signs, Rebound, Guarding Back: Present: Paraspinal Tenderness, Pain with Leg Raise. No: Normal Inspection, Midline Tenderness, Decubitus Ulcer Upper Extremity: Present: Normal Inspection. No: Cyanosis, Edema Lower Extremity: Present: Normal Inspection. No: Edema, CALF TENDERNESS, NORMAL PULSES Neurological: Present: GCS=15, CN II-XII Intact, Speech Normal Skin: Present: Warm, Dry, Normal Color. No: Rashes Psychiatric: Present: Alert, Oriented x 3, Normal Insight, Normal Concentration <Mitchell Chan - Last Filed: 12/09/18 18:37> Vital Signs Temp Pulse Resp BP Pulse Ox 12/09/18 13:56 97.8 F 96 H 18 127/82 99 <Suzi Ross - Last Filed: 12/09/18 18:51> Medical Decision Making ED Course and Treatment: 12/09/18 16:02 Impression 28 yo female w/ PMH of ovarian cysts comes to ED for evaluation of low back pain that started 2 weeks ago. Plan -Lumbar Spine Xray -Flexeril -Toradol -Prednisone -Valium Prior Visits All prior documentation and lab work reviewed prior to evaluation Progress Notes will monitor pain response to above medications 12/09/18 16:38 Patient pain has improved significantly Patient ambulating without difficulty pending lumbar xray imaging 12/09/18 18:04 patient pain improved initially but then began complaining of pain again, Valium was ordered will monitor clinical response 12/09/18 18:37 patient pain improved will discharge with medrol dose pack and flexeril patient instructed to f/u with primary medical doctor for possible MRI and further testing Re-evaluation Time: 18:37 Reassessment Condition: Re-examined, Improved - RAD Interpretation Radiology Orders: 12/09/18 15:46 LS SPINE AP/LAT [RAD] Stat Digital Media Coordinator: Radiologist - Medication Orders Current Medication Orders: Cyclobenzaprine HCl (Flexeril) 5 mg PO STAT STA Stop: 12/09/18 15:51 Ketorolac Tromethamine (Toradol) 60 mg IM STAT STA Stop: 12/09/18 15:51 Prednisone (Prednisone Tab) 20 mg PO STAT STA Stop: 12/09/18 15:51 <Mitchell Chan - Last Filed: 12/09/18 18:37> ED Course and Treatment: 12/09/18 16:04 Patient Seen with Resident: In agreement with resident note which contains more details about the patient. Patient seen and evaluated with resident. Came up with plan and treatment together. Patient complaining of L back pain radiating into L leg. No focal weakness, numbness or tingling. No midline pain. Lumbar xray negative - RAD Interpretation Radiology Orders: 12/09/18 15:46 LS SPINE AP/LAT [RAD] Stat - Medication Orders Current Medication Orders: Discontinued Medications Cyclobenzaprine HCl (Flexeril) 5 mg PO STAT STA Stop: 12/09/18 15:51 Ketorolac Tromethamine (Toradol) 60 mg IM STAT STA Stop: 12/09/18 15:51 Prednisone (Prednisone Tab) 20 mg PO STAT STA Stop: 12/09/18 15:51 <Suzi Ross - Last Filed: 12/09/18 18:51> - PA / ETL BI DEVELOPER / Resident Statement / has reviewed & agrees with the documentation as recorded. / has examined the patient and agrees with the treatment plan. <Suzi Ross - Last Filed: 12/09/18 18:51> Disposition/Present on Arrival - Present on Arrival Any Indicators Present on Arrival: No History of DVT/PE: No History of Uncontrolled Diabetes: No Urinary Catheter: No History of Decub. Ulcer: No History Surgical Site Infection Following: None - Disposition Have Diagnosis and Disposition been Completed?: Yes Disposition Time: 18:38 Patient Plan: Discharge <Mitchell Chan - Last Filed: 12/09/18 18:37> - Present on Arrival Any Indicators Present on Arrival: No - Disposition Have Diagnosis and Disposition been Completed?: Yes <Suzi Ross - Last Filed: 12/09/18 18:51> - Disposition Diagnosis: Low back pain Disposition: HOME/ ROUTINE Patient Problems: Current Active Problems Problem Status Onset Low back pain Acute Condition: FAIR Discharge Instructions (ExitCare): Low Back Pain in Adults Additional Instructions: 1. Please follow up with primary medical doctor within a week of discharge from hospital. 2. Discharged with medrol dose pack to take for next 21 days. Discharged with flexeril to use as needed up to 3 times a day for back pain. 2. If symptoms worsen please return to hospital. Prescriptions: Cyclobenzaprine [Cyclobenzaprine HCl] 10 mg PO TID PRN #20 tab PRN Reason: Muscle Spasm Methylprednisolone [Medrol Dose Pack (21 tabs)] 4 mg PO DAILY #21 mg Referrals: PCP,NO [Primary Care Provider] - Follow up with primary Forms: [employer] (Maltese)
--- NOTE | 2018-12-09 17:47 | RAD ---
Date of service: 12/09/2018 PROCEDURE: Radiographs of the Lumbar Spine. HISTORY: lumbar spine pain COMPARISON: No prior. TECHNIQUE: 5 views obtained. FINDINGS: BONES: Normal alignment. No listhesis. No fracture. DISC SPACES: Unremarkable. OTHER FINDINGS: Constipation without fecal impaction or obstruction. IMPRESSION: Unremarkable radiographs of the lumbar spine.
[2018-12-09 19:07] VITALS: BP 130/82; PULSE 82; RESP 16
== END 2018-12-09 19:05 | disposition home or self-care (01) ==
LOC: ED 13:39
DX: M54.5 Low back pain (principal)
CPT/HCPCS: 72100; 81025; 96372; 99282; J1885